=== PATIENT | female | born 1960 | race Caucasian/White ===

== ENCOUNTER 2016-11-07 18:48 | Emergency (ER) | payer OTHER ==
--- NOTE | ~2016-11-07 | CR72 ---
[facility] A Service of [facility] RADIOLOGY TEXT RESULTS PATIENT: JI LARRY LOCATION: [facility] : 62 UNIT #: [id number] AGE: [address]: Jose Elias Harris MD SEX: F ORDER DR: [id number] [facility] [address] [place], [place] [address] [id number] E MR#: [id number] Acc #: [id number] NAME: JI LARRY : 1960 SEX: F STUDY DATE/TIME: 11/07/2016 18:24 UNIT: [facility] ROOM: STUDY DESCRIPTION: CR Chest Single View Portable Attending Physician: Jose Elias Harris M.D. Ordering Physician: Jose Elias Harris M.D. Primary Care Physician: Beverly Trinh M.D. MEDICAL IMAGING REPORT This report is preliminary unless electronic signature is present EXAM Portable chest HISTORY Seizures, syncopal episode today, cough for 2 weeks. FINDINGS AP portable view is obtained. Study is compared to that of 11/07/2015. The heart size is normal. The lungs show predominantly upper lobe pulmonary infiltrates. There is some minimal infiltrate in the right base that appears to be present on the old film. Lungs otherwise appear clear. No pleural fluid is seen. CONCLUSION Predominantly bilateral upper lobe pulmonary infiltrates. Certainly pneumonia is in the differential with the history of neurogenic issues. Clearly neurogenic pulmonary edema is also to be considered. Please correlate with the patient's clinical findings. Dictated by... Felipe Feliz M.D. THIS IS AN ELECTRONICALLY VERIFIED REPORT Felipe Feliz M.D. at 11/09/2016 3:10 PM EMILY/imani TD: 11/08/2016 09:10 JOB #: [id number] MEDICAL IMAGING REPORT Page 1 of 1 COPY
[2016-11-07 18:41] LABS: BASOPHIL% 0.3 % (0-2.5); EOSINOPHIL% 0.6 % (0.0-7.0); HEMATOCRIT 37.3 % (35.0-45.0); HEMOGLOBIN 12.4 gm/dL (12.0-16.0); LYMPHOCYTE# 0.8 X10e3 (1.0-3.5); LYMPHOCYTE% 14.4 % (17.0-45.0); MEAN CELL VOLUME 88.2 FL (83-96); MEAN CORPUSCULAR HEMOGLOBIN 29.5 PG (28-34); MEAN CORPUSCULAR HGB CONC 33.4 g/dL (30-36); MEAN PLATELET VOLUME 8.6 FL (6.5-11.5); MONOCYTE# 0.3 X10e3 (0-1.0); MONOCYTE% 4.8 % (3.0-12.0); NEUTROPHIL# 4.2 X10e3 (1.5-7.1); NEUTROPHIL% 79.9 % (40-75); PLATELET COUNT 242 X10e3 (140-420); RED BLOOD COUNT 4.22 X10e (3.90-5.30); RED CELL DISTRIBUTION WIDTH 15.2 % (11.0-15.5); WHITE BLOOD COUNT 5.2 X10e3 (4.0-10.5)
[2016-11-07 18:43] LABS: DIFF IND NO
[2016-11-07 18:47] LABS: URINE SOURCE CLEAN CATCH
[~2016-11-07 18:48] MED LIST: ADVAIR INH; ALPRAZOLAM; ALPRAZOLAM PO; CARAFATE PO; CODEINE PO; COMBIVENT INH14.7 GM INH; CYANOCOBAL1000 MCG/M INJ; DILANTIN PO; FAMOTIDINE PO; KCL PO; LEVAQUIN PO; LORTAB 10-5001 EACH; LORTAB 10/500 T1 TAB PO; LORTAB 7.5-5001 TAB PO; MEDROL PO; MORPHINE; PHENERGAN PO; PROTONIX PO; SEIZURE MED; VANCOCIN HCL250 MG IM/IV; VANCOCIN HCL250 MG IV; VOLTAREN75 MG PO; ZITHROMAX PO
[2016-11-07 18:53] LABS: URINE APPEARANCE CLOUDY; URINE BILIRUBIN NEG (NEG); URINE BLOOD NEG (NEG); URINE COLOR YELLOW; URINE GLUCOSE NEG (NEG); URINE KETONE NEG (NEG); URINE LEUKOCYTE ESTERASE 1+ (NEG); URINE NITRATE NEG (NEG); URINE PH 7.5 (5-8); URINE PROTEIN TRACE (NEG); URINE SPECIFIC GRAVITY 1.012 (1.003-1.035); URINE UROBILINOGEN 0.2 MG/DL (NEG)
[2016-11-07 18:56] LABS: CULTURE INDICATED? YES; URBCS1 AUWI 0-2 /[HPF] (0-2); URINE BACTERIA AUWI 2+ (NEGATIVE); URINE SQUAMOUS EPITHELIAL CELL MOD /[HPF]
[2016-11-07 19:15] LABS: AMPHETAMINE NEG (NEG); BARBITURATES NEG (NEG); BENZODIAZEPINES POS (NEG); COCAINE NEG (NEG); MARIJUANA NEG (NEG); OPIATES POS (NEG); TRICYCLIC ANTIDEPRESSANTS NEG (NEG); U METHADONE NEG (NEG)
[2016-11-07 19:32] LABS: ALBUMIN SERUM 3.9 g/dL (3.5-5.0); ALKALINE PHOSPHATASE 130 U/L (32-92); ALT (SGPT) 15 U/L (10-40); AST (SGOT) 21 U/L (10-42); BILIRUBIN, DIRECT 0.1 mg/dL (0.0-0.2); BILIRUBIN,INDIRECT 0.4 mg/dL (0.0-0.9); BILIRUBIN,TOTAL 0.5 mg/dL (0.2-2.0); CALCIUM SERUM 8.9 mg/dL (8.4-10.2); CARBON DIOXIDE 25 mmol/L (22-31); CHLORIDE 113 mmol/L (100-111); CREATININE SERUM 0.6 mg/dL (0.6-1.4); GLOM FILT RATE Estimated ABOVE60 mL/min (>60); GLUCOSE FASTING 111 mg/dL (70-110); POTASSIUM 3.5 mmol/L (3.5-5.1); PROTEIN TOTAL SERUM 6.5 g/dL (6.0-8.3); SODIUM 145 mmol/L (135-145)
[2016-11-07 19:34] LABS: BLOOD UREA NITROGEN 5 mg/dL (9-23); BUN/CREATININE RATIO 8.33
[2016-11-07 19:40] LABS: DILANTIN (PHENYTOIN) 10.2 ug/mL (10.0-20.0)
== END 2016-11-07 20:02 | disposition home or self-care (01) ==
LOC: CED 18:48
PROVIDERS: Emergency Medicine
DX: G40.909 Epilepsy, unspecified, not intractable, without status epilepticus (principal); N39.0 Urinary tract infection, site not specified; J18.9 Pneumonia, unspecified organism
CPT/HCPCS: 36415; 71010; 80048; 80076; 80185; 80307; 81003; 82947; 85025; 87086; 96374; 99284; J0696

== ENCOUNTER 2016-12-17 11:40 | Emergency (ER) | payer OTHER | END 2016-12-17 12:40 | disposition home or self-care (01) | LOC: CED 11:40 | DX: T40.1X1A Poisoning by heroin, accidental (unintentional), initial encounter (principal); F11.10 Opioid abuse, uncomplicated; G40.909 Epilepsy, unspecified, not intractable, without status epilepticus; Z88.5 Allergy status to narcotic agent | CPT/HCPCS: 99282 ==

== ENCOUNTER 2016-12-21 12:19 | Emergency (ER) | payer OTHER | END 2016-12-21 12:28 | disposition left against medical advice (07) | LOC: CED 12:19 | DX: T40.1X1A Poisoning by heroin, accidental (unintentional), initial encounter (principal); G40.909 Epilepsy, unspecified, not intractable, without status epilepticus; Z90.710 Acquired absence of both cervix and uterus; Z88.5 Allergy status to narcotic agent | CPT/HCPCS: 99282 ==

== ENCOUNTER 2017-02-18 22:40 | Emergency (ER) | payer OTHER | END 2017-02-19 01:45 | disposition home or self-care (01) | LOC: CED 22:40 | DX: T40.1X1A Poisoning by heroin, accidental (unintentional), initial encounter (principal); G43.909 Migraine, unspecified, not intractable, without status migrainosus; F17.210 Nicotine dependence, cigarettes, uncomplicated; Z90.710 Acquired absence of both cervix and uterus; Z88.5 Allergy status to narcotic agent | CPT/HCPCS: 99285 ==

== ENCOUNTER 2017-02-23 00:13 | Emergency (ER) | payer OTHER ==
[2017-02-23 01:06] LABS: URINE SOURCE CLEAN CATCH
[2017-02-23 01:10] LABS: URINE APPEARANCE CLOUDY; URINE BILIRUBIN NEG (NEG); URINE BLOOD 3+ (NEG); URINE COLOR ORANGE; URINE GLUCOSE >1000 MG/DL (NEG); URINE KETONE NEG (NEG); URINE LEUKOCYTE ESTERASE 2+ (NEG); URINE NITRATE NEG (NEG); URINE PROTEIN 2+ (NEG); URINE SPECIFIC GRAVITY 1.017 (1.003-1.035)
[2017-02-23 01:13] LABS: CULTURE INDICATED? YES; URBCS1 AUWI INNUM /[HPF] (0-2); URINE BACTERIA AUWI 4+ (NEGATIVE); URINE SQUAMOUS EPITHELIAL CELL OCC /[HPF]; UWBCS1 AUWI 200-300 (0-5)
== END 2017-02-23 03:50 | disposition home or self-care (01) ==
LOC: CED 00:13
PROVIDERS: Emergency Medicine
DX: G40.409 Other generalized epilepsy and epileptic syndromes, not intractable, without status epilepticus (principal); N39.0 Urinary tract infection, site not specified; Z91.14 Patient's other noncompliance with medication regimen; F17.200 Nicotine dependence, unspecified, uncomplicated; Z79.899 Other long term (current) drug therapy; Z90.710 Acquired absence of both cervix and uterus; Z98.890 Other specified postprocedural states; Z88.5 Allergy status to narcotic agent
CPT/HCPCS: 81003; 82947; 87086; 87088; 87186; 96365; 96375; 99284; J0696; J2405

== ENCOUNTER 2017-03-04 14:23 | Emergency (ER) | payer OTHER ==
[~2017-03-04] VITALS: Ht 170.2 cm; Wt 47.6 kg
== END 2017-03-04 15:40 | disposition left against medical advice (07) ==
LOC: CED 14:23
DX: T40.1X1A Poisoning by heroin, accidental (unintentional), initial encounter (principal); Z88.5 Allergy status to narcotic agent; Z90.710 Acquired absence of both cervix and uterus
CPT/HCPCS: 99284

== ENCOUNTER 2017-03-18 10:58 | Emergency (ER) | payer OTHER | END 2017-03-18 14:40 | disposition home or self-care (01) | LOC: CED 10:58 | DX: T40.1X1A Poisoning by heroin, accidental (unintentional), initial encounter (principal); R56.9 Unspecified convulsions; Z98.890 Other specified postprocedural states; Z90.710 Acquired absence of both cervix and uterus; F17.200 Nicotine dependence, unspecified, uncomplicated; Z88.0 Allergy status to penicillin; Z88.5 Allergy status to narcotic agent; Z88.8 Allergy status to other drugs, medicaments and biological substances | CPT/HCPCS: 96374; 99284; J2310 ==

== ENCOUNTER 2017-04-05 15:45 | Emergency (ER) | payer OTHER ==
[~2017-04-05] VITALS: Ht 160 cm; Wt 65.8 kg
--- NOTE | ~2017-04-05 | EKG ---
PATIENT: JI LARRY UNIT #: [id number] Ventricular Rate: 116 BPM Atrial Rate: 90 BPM P-R Interval: 198 ms QRS Duration: 86 ms Q-T Interval: 354 ms QTC Calculation(Bezet): 492 ms P Calypso: 44 degrees Calculated R Calypso: 10 degrees Calculated T Calypso: 59 degrees Diagnosis Line: Sinus rhythm Diagnosis Line: Normal ECG Diagnosis Line: When compared with ECG of 07-NOV-2015 19:51, Diagnosis Line: No significant change was found Diagnosis Line: Confirmed by WILLIAM QUINTANA MD ([id number]) on Diagnosis Line: 04/05/2017 10:50:45 PM INTERPRETING MD: KARINA
--- NOTE | ~2017-04-05 | CR72 ---
[facility] A Service of [facility] RADIOLOGY TEXT RESULTS PATIENT: JI LARRY LOCATION: [facility] : 62 UNIT #: [id number] AGE: [address]: Ramos Duque MD SEX: F ORDER DR: [id number] [facility] [address] [place], [place] [address] [id number] E MR#: [id number] Acc #: [id number] NAME: JI LARRY : 1960 SEX: F STUDY DATE/TIME: 04/05/2017 16:24 UNIT: [facility] ROOM: STUDY DESCRIPTION: CR Chest Single View Portable Attending Physician: Ramos Duque M.D. Ordering Physician: Ramos Duque M.D. Primary Care Physician: Beverly Trinh M.D. MEDICAL IMAGING REPORT This report is preliminary unless electronic signature is present EXAM Portable chest HISTORY Shortness of air for 1 day. Drug overdose. FINDINGS The cardiac size and pulmonary vascularity are normal. No infiltrates. Mild linear atelectasis or scarring in the right base. Mild left upper thoracic curve and mild mid-right thoracic curve. IMPRESSION No acute findings. No evidence of active disease. Mild linear atelectasis or scarring in the right base. Dictated by... Rikki Garber M.D. THIS IS AN ELECTRONICALLY VERIFIED REPORT Rikik Garber M.D. at 04/05/2017 11:13 PM DFL/pcl TD: 04/05/2017 22:10 JOB #: [id number] MEDICAL IMAGING REPORT Page 1 of 1 COPY
[2017-04-05 16:48] LABS: POC - CKMB <1.0 ng/mL (0.0-7.9); POC - TROPONIN <0.05 ng/mL (<=0.05)
[2017-04-05 16:54] LABS: BASOPHIL% 0.9 % (0-2.5); EOSINOPHIL# 0.1 X10e3 (0-0.7); EOSINOPHIL% 3.3 % (0.0-7.0); HEMATOCRIT 38.5 % (35.0-45.0); HEMOGLOBIN 13.1 gm/dL (12.0-16.0); LYMPHOCYTE# 1.2 X10e3 (1.0-3.5); LYMPHOCYTE% 29.7 % (17.0-45.0); MEAN CELL VOLUME 90.9 FL (83-96); MEAN PLATELET VOLUME 8.3 FL (6.5-11.5); MONOCYTE# 0.3 X10e3 (0-1.0); MONOCYTE% 7.3 % (3.0-12.0); NEUTROPHIL# 2.4 X10e3 (1.5-7.1); NEUTROPHIL% 58.8 % (40-75); PLATELET COUNT 239 X10e3 (140-420); RED BLOOD COUNT 4.23 X10e (3.90-5.30); WHITE BLOOD COUNT 4.1 X10e3 (4.0-10.5)
[2017-04-05 16:57] LABS: DIFF IND NO
[2017-04-05 17:19] LABS: ALBUMIN SERUM 3.7 g/dL (3.5-5.0); ALKALINE PHOSPHATASE 140 U/L (32-92); ALT (SGPT) 14 U/L (10-40); AST (SGOT) 19 U/L (10-42); BILIRUBIN, DIRECT 0.1 mg/dL (0.0-0.2); BILIRUBIN,INDIRECT 0.4 mg/dL (0.0-0.9); BILIRUBIN,TOTAL 0.5 mg/dL (0.2-2.0); BLOOD UREA NITROGEN 8 mg/dL (9-23); BUN/CREATININE RATIO 13.33; CALCIUM SERUM 8.1 mg/dL (8.4-10.2); CARBON DIOXIDE 27 mmol/L (22-31); CHLORIDE 109 mmol/L (100-111); CREATININE SERUM 0.6 mg/dL (0.6-1.4); GLOM FILT RATE Estimated 102.6 mL/min (>60); GLUCOSE FASTING 88 mg/dL (70-110); POTASSIUM 3.8 mmol/L (3.5-5.1); PROTEIN TOTAL SERUM 6.2 g/dL (6.0-8.3); SALICYLATE <4.0 mg/dL; SODIUM 143 mmol/L (135-145)
[2017-04-05 17:20] LABS: ACETAMINOPHEN <10 ug/mL; ALCOHOL BLOOD <5 mg/dL (0)
== END 2017-04-05 17:05 | disposition left against medical advice (07) ==
LOC: CED 15:45
PROVIDERS: Emergency Medicine
DX: T40.1X1A Poisoning by heroin, accidental (unintentional), initial encounter (principal); F17.200 Nicotine dependence, unspecified, uncomplicated; Z88.0 Allergy status to penicillin; Z88.5 Allergy status to narcotic agent
CPT/HCPCS: 71010; 80048; 80076; 82553; 82947; 84484; 85025; 93005; 96374; 99285; G0480; J2310